=== PATIENT | female | born 1960 | race Caucasian/White ===

== ENCOUNTER 2018-03-18 12:15 | Emergency (ER) | payer BC ==
[~2018-03-18] VITALS: Ht 167.6 cm; Wt 68.0 kg
[2018-03-18 12:15] VITALS: BP 114/69
[2018-03-18 12:54] LABS: BASOPHILS # (AUTO) 0.1 /CMM (0.0-0.2); BASOPHILS % (AUTO) 0.5 % (0.0-2.0); EOSINOPHILS % (AUTO) 0.3 % (0.0-6.0); HEMATOCRIT 43 % (33-45); HEMOGLOBIN 14.2 g/dL (11.5-14.8); LYMPHOCYTES # (AUTO) 1.9 /CMM (0.8-4.8); LYMPHOCYTES % (AUTO) 19.2 % (20.0-44.0); MEAN CORPUSCULAR HGB CONC 34 g/dl (31.0-36.0); MEAN CORPUSCULAR VOLUME 94 fL (82-100); MONOCYTES # (AUTO) 0.5 /CMM (0.1-1.30); MONOCYTES % (AUTO) 5.3 % (2.0-12.0); NEUTROPHILS # (AUTO) 7.2 /CMM (1.8-8.9); NEUTROPHILS % (AUTO) 74.7 % (43.0-81.0); PLATELET COUNT (AUTO) 290 /CMM (150-450); RED BLOOD CELL COUNT(AUTO) 4.54 MIL/uL (4.0-5.2); WHITE BLOOD COUNT (AUTO) 9.7 K/uL (4.3-11.0)
[2018-03-18] MEDS ORDERED: ACETAMINOPHEN 325 MG TABLET PO ONE (13:00)
[2018-03-18] MEDS ORDERED: ACETAMINOPHEN ES 500 MG TABLET ONE (13:13)
[2018-03-18] MEDS ORDERED: IBUPROFEN 600 MG TABLET PO ONE ×2 (13:17→13:30)
== END 2018-03-18 14:18 | disposition home or self-care (01) ==
LOC: ER 12:17
DX: S20.212A Contusion of left front wall of thorax, initial encounter (principal); I10 Essential (primary) hypertension; W18.39XA Other fall on same level, initial encounter; Y93.89 Activity, other specified; Y92.89 Other specified places as the place of occurrence of the external cause; Y99.8 Other external cause status
CPT/HCPCS: 36415; 71111; 85025; 99284; A4606; Z7610